=== PATIENT | male | born 1970 ===

== ENCOUNTER 2020-10-10 16:21 | Outpatient (REF) | payer OTHER, SELFPAY ==
[2020-10-10 22:34] LABS: Hemoglobin A1C 6.6 % (<5.7)
[2020-10-10 23:05] LABS: Anion Gap 7.8 mmol/L (3-11); BUN 18 mg/dL (7-18); CO2 30.2 mmol/L (21.0-32.0); CREATININE 1.21 mg/dL (0.70-1.30); Calcium 9.2 mg/dL (8.5-10.1); Calculated LDL 57 mg/dL (<100); Chloride 101 mmol/L (98-107); Cholesterol 162 mg/dL (<200); Glucose 141 mg/dL (74-106); HDL Cholesterol 54 mg/dL (40-60); Potassium 4.2 mmol/L (3.5-5.1); Sodium 139 mmol/L (136-145); Triglyceride 256 mg/dL (<150)
[2020-10-12 16:08] LABS: Hepatitis C Ab w Rflx HCV PCR Negative (Negative)
== END 2020-10-10 16:41 ==
LOC: NCHCN 16:21
PROVIDERS: Visit Provider Nurse Practitioner Family
DX: E11.9 Type 2 diabetes mellitus without complications (principal); E66.3 Overweight; Z11.59 Encounter for screening for other viral diseases
CPT/HCPCS: 80048; 80061; 86803; 83036

== ENCOUNTER 2021-01-08 23:14 | Outpatient (REF) | payer OTHER, SELFPAY ==
[2021-01-08 22:04] LABS: COMMENT (LAB VIEW ONLY) 103.83 mg/dL; Microalb ug/mg Crea 7.8 ug/mg Cr
== END 2021-01-08 23:15 | disposition home or self-care (01) ==
LOC: NCHCN 23:14
PROVIDERS: Visit Provider Nurse Practitioner Family
DX: E11.9 Type 2 diabetes mellitus without complications (principal)
CPT/HCPCS: 82043; 82570